=== PATIENT | male | born 1960 ===

== ENCOUNTER 2016-07-10 15:48 | Outpatient (RCR) | payer MEDICARE, OTHER | END 2016-07-31 | disposition home or self-care (01) | LOC: WCC 15:48 | DX: Z51.11 Encounter for antineoplastic chemotherapy (principal); L59.8 Other specified disorders of the skin and subcutaneous tissue related to radiation; W88.8XXS Exposure to other ionizing radiation, sequela; C32.9 Malignant neoplasm of larynx, unspecified | CPT/HCPCS: G0277; G0463 ==